=== PATIENT | female | born 1965 | race Caucasian/White ===

== ENCOUNTER 2016-10-08 00:46 | Emergency (ER) | payer MEDICAID, OTHER ==
[~2016-10-08] VITALS: Ht 167.6 cm; Wt 66.0 kg
[~2016-10-08 00:46] MED LIST: LAMI25TA3 PO; PAXI10TA PO; Z.0.NO CURRENT MEDS
[2016-10-08 01:05] VITALS: BP 155/87; PULSE 78; RESP 20; TEMP 98.4
[2016-10-08 01:10] VITALS: BP_SYST 126; BP_SYST 132; BP_DIAS 61; BP_DIAS 75; PULSE 74; RESP 18; O2SAT 98
[2016-10-08] MEDS ORDERED: SODIUM CHLORIDE 0.9% FLUSH 10 ML FLUSH IVF PRN (01:15)
[2016-10-08 01:16] LABS: AUTOMATED NEUTROPHIL # 4.6 TH/MM3 (1.8-7.7); BASOPHIL # 0.1 TH/MM3 (0-0.2); BASOPHIL % 0.6 % (0.0-2.0); EOSINOPHIL # 0.2 TH/MM3 (0-0.4); EOSINOPHIL % 1.6 % (0.0-4.0); HEMATOCRIT 33.7 % (35.0-46.0); LYMPH % 39.5 % (9.0-44.0); LYMPHOCYTE # 3.9 TH/MM3 (1.0-4.8); MEAN CELL VOLUME 66.1 FL (80.0-100.0); MEAN CORPUSCULAR HEMOGLOBIN 20.9 PG (27.0-34.0); MEAN CORPUSCULAR HGB CONC 31.7 % (32.0-36.0); MONO % 9.8 % (0.0-8.0); NEUT % 48.5 % (16.0-70.0); PLATELET COUNT 456 TH/MM3 (150-450); RED CELL DISTRIBUTION WIDTH 21.3 % (11.6-17.2); WHITE BLOOD COUNT 9.8 TH/MM3 (4.0-11.0)
[2016-10-08 01:22] LABS: CHLORIDE 112 MEQ/L (98-107); POTASSIUM 3.4 MEQ/L (3.5-5.1); SODIUM (NA) 145 MEQ/L (136-145)
--- NOTE | 2016-10-08 01:22 | RADHPO ---
EXAM DATE/TIME: 10/08/2016 01:03 [facility] COMPARISON: No previous studies available for comparison. INDICATIONS : Chest pain. MEDICAL HISTORY : Chronic obstructive pulmonary disease. SURGICAL HISTORY : None. ENCOUNTER: Initial ACUITY: 1 day PAIN SCORE: 8/10 LOCATION: Bilateral chest FINDINGS: A single view of the chest demonstrates the lungs to be symmetrically aerated without evidence of mas s, infiltrate or effusion. The cardiomediastinal contours are unremarkable. Osseous structures are intact. CONCLUSION: 1. No acute cardiopulmonary disease. Addi Mercado MD on October 08, 2016 at 1:21 Board Certified Radiologist. This report was verified electronically.
--- NOTE | 2016-10-08 01:22 | PD ---
HPI . Chest pain Chief Complaint: Chest Pain Time Seen by Provider: 01:19 Travel History International Travel<30 days: No Contact w/Intl Traveler<30days: No Traveled to known affect area: No History of Present Illness HPI Patient is brought in obviously intoxicated by her probably equally intoxicated significant other with a chief complaint of chest pain which has been going on for months. Patient also reports numbness in her left arm and left leg. This has also been present for months. Further reliable history is not obtainable at this time. PFSH Past Medical History Asthma: No Blood Disorders: No Bipolar Disorder: Yes Anxiety: Yes Depression: Yes Cancer: No Cardiovascular Problems: No Chemotherapy: No Chest Pain: Yes (VAGUE H/O CP/PRESSURE C SOB OVER PAST YEAR APPROX 8-9 X AND X 2 DAYS AGO) COPD: Yes Diabetes: No Diminished Hearing: No Endocrine: No Gastrointestinal Disorders: No Genitourinary: No Immune Disorder: No Musculoskeletal: No Neurologic: No Psychiatric: Yes (PTSD) Reproductive: No Respiratory: Yes Radiation Therapy: No Seizures: No Sickle Cell Disease: No Sleep Apnea: No ?: Not Menopausal: No : 8 Para: 8 : 1 Tubal Ligation: Yes Past Surgical History Abdominal Surgery: No AICD: No Cardiac Surgery: No Ear Surgery: No Endocrine Surgery: No Eye Surgery: Yes (cataract surgery, 1991) Genitourinary Surgery: No Gynecologic Surgery: Yes (TUBAL LIGATION 1990) Insulin Pump: No Joint Replacement: No Neurologic Surgery: No Oral Surgery: No Pacemaker: No Thoracic Surgery: No Other Surgery: Yes Social History Alcohol Use: Yes (SOCIALLY, TWO BEERS TODAY) Tobacco Use: Yes (1 - 1 1/2 ppd cigarettes) Substance Use: Yes (YES, ALCOHOL) Allergies-Medications (Allergen,Severity, Reaction): Coded Allergies: Aspirin (Verified Allergy, Severe, ITCH, 10/08/16) Ativan (Verified Allergy, Severe, ITCH, 10/08/16) Codeine (Verified Allergy, Severe, ITCH, 10/08/16) Penicillin (Verified Allergy, Severe, ITCH, 10/08/16) Reported Meds & Prescriptions Reported Meds & Active Scripts Active Review of Systems ROS Limitations: Intoxication Cardiovascular: Positive: Chest Pain or Discomfort Neurologic: Positive: Paresthesia Physical Exam Narrative GENERAL: The room smells heavily of alcohol. The patient is giggling. Both the patient and her significant other have slurred speech. SKIN: Warm and dry. HEAD: Atraumatic. Normocephalic. EYES: Pupils equal and round. Extraocular movements are intact. ENT: No nasal bleeding or discharge. Mucous membranes pink and moist. NECK: Trachea midline. Neck is supple. CARDIOVASCULAR: Regular rate and rhythm. Heart sounds are normal. RESPIRATORY: No accessory muscle use. Lungs are clear with good air movement throughout. Patient complains of diffuse chest wall tenderness. GASTROINTESTINAL: Abdomen soft, non-tender, nondistended. MUSCULOSKELETAL: No obvious deformities. No edema. NEUROLOGICAL: Awake and alert. No obvious cranial nerve deficits. Motor grossly within normal limits. Normal speech. PSYCHIATRIC: Intoxicated. Data Data Last Documented VS Vital Signs Date Time Temp Pulse Resp B/P Pulse Ox O2 Delivery O2 Flow Rate FiO2 10/08/16 03:14 Room Air 10/08/16 03:14 69 17 111/69 98 10/08/16 01:05 98.4 Orders Basic Metabolic Panel (Bmp) (10/08/16 01:01) Ckmb (Isoenzyme) Profile (10/08/16 01:01) Complete Blood Count With Diff (10/08/16 01:01) Magnesium (Mg) (10/08/16 01:01) Prothrombin Time / Inr (Pt) (10/08/16 01:01) Act Partial Throm Time (Ptt) (10/08/16 01:01) Troponin I (10/08/16 01:01) Chest, Single Ap (10/08/16 01:01) Ecg Monitoring (10/08/16 01:01) Bilateral Bp Monitoring (10/08/16 01:01) Iv Access Insert/Monitor (10/08/16 01:01) Oximetry (10/08/16 01:01) Oxygen Administration (10/08/16 01:01) Sodium Chloride 0.9% Flush (Ns Flush) (10/08/16 01:15) Drug Screen, Random Urine (10/08/16 01:19) CKMB (10/08/16 01:03) CKMB% (10/08/16 01:03) Alcohol (Ethanol) (10/08/16 01:03) Labs Laboratory Tests Test 10/08/16 10/08/16 01:03 01:39 White Blood Count 9.8 TH/MM3 Red Blood Count 5.10 MIL/MM3 Hemoglobin 10.7 GM/DL Hematocrit 33.7 % Mean Corpuscular Volume 66.1 FL Mean Corpuscular Hemoglobin 20.9 PG Mean Corpuscular Hemoglobin 31.7 % Concent Red Cell Distribution Width 21.3 % Platelet Count 456 TH/MM3 Mean Platelet Volume 7.2 FL Neutrophils (%) (Auto) 48.5 % Lymphocytes (%) (Auto) 39.5 % Monocytes (%) (Auto) 9.8 % Eosinophils (%) (Auto) 1.6 % Basophils (%) (Auto) 0.6 % Neutrophils # (Auto) 4.6 TH/MM3 Lymphocytes # (Auto) 3.9 TH/MM3 Monocytes # (Auto) 1.0 TH/MM3 Eosinophils # (Auto) 0.2 TH/MM3 Basophils # (Auto) 0.1 TH/MM3 CBC Comment AUTO DIFF Differential Comment AUTO DIFF CONFIRMED Platelet Estimate HIGH Platelet Morphology Comment NORMAL Prothrombin Time 10.4 SEC Prothromb Time International 0.9 RATIO Ratio Activated Partial 28.5 SEC Thromboplast Time Sodium Level 145 MEQ/L Potassium Level 3.4 MEQ/L Chloride Level 112 MEQ/L Carbon Dioxide Level 21.3 MEQ/L Anion Gap 12 MEQ/L Blood Urea Nitrogen 10 MG/DL Creatinine 0.69 MG/DL Estimat Glomerular Filtration 89 ML/MIN Rate Random Glucose 76 MG/DL Calcium Level 8.6 MG/DL Magnesium Level 2.5 MG/DL Total Creatine Kinase 152 U/L Creatine Kinase MB 1.9 NG/ML Troponin I LESS THAN 0.02 NG/ML Ethyl Alcohol Level 282 MG/DL Urine Opiates Screen NEG Urine Barbiturates Screen NEG Urine Amphetamines Screen NEG Urine Benzodiazepines Screen NEG Urine Cocaine Screen NEG Urine Cannabinoids Screen NEG [facility] Medical Decision Making Medical Screen Exam Complete: Yes Emergency Medical Condition: Yes Interpretation(s) EKG shows a normal sinus rhythm with no ST segment elevation or depression. Differential Diagnosis Differential diagnosis of chest pain includes but is not limited to musculoskeletal pain, pulmonary embolism, acute coronary syndrome, pneumonia, pleurisy Narrative Course Patient presents for evaluation of chest pain and left arm and leg numbness which have been present for months. CBC & BMP Diagram 10/08/16 01:03 Cardiac enzymes are negative. Tox screen is negative. Alcohol level is 282. She will be allowed to sleep it off. She will then be discharged to follow-up with her primary care provider. Diagnosis Primary Impression: Chest pain Qualified Code: R07.9 - Chest pain, unspecified type Additional Impressions: Paresthesia of left arm and leg Acute alcohol intoxication Qualified Code: F10.120 - Acute alcohol intoxication, uncomplicated Referrals: Primary Care Physician Patient Instructions: Chest Pain (DC), General Instructions Disposition: 01 DISCHARGE HOME Condition: Stable Cristina Thomas MD October 08, 2016 01:22 Condition: Stable Cristina Thomas MD October 08, 2016 01:22
[2016-10-08 01:25] LABS: ANION GAP 12 MEQ/L (5-15); BICARBONATE 21.3 MEQ/L (21.0-32.0); BLOOD UREA NITROGEN 10 MG/DL (7-18); MAGNESIUM 2.5 MG/DL (1.5-2.5)
[2016-10-08 01:28] LABS: APTT (PATIENT) 28.5 SEC (24.3-30.1); INTERNATIONAL NORMALIZED RATIO 0.9 RATIO; PROTHROMBIN TIME - PATIENT 10.4 SEC (9.8-11.6)
[2016-10-08 01:29] LABS: GLOMERULAR FILTRATION RATE 89 ML/MIN (>89)
[2016-10-08 01:32] LABS: CREATINE KINASE 152 U/L (26-192)
[2016-10-08 01:35] LABS: HEMO FLAGS AUTO DIFF
[2016-10-08 01:44] LABS: CKMB 1.9 NG/ML (0.5-3.6)
[2016-10-08 01:46] LABS: PLATELET ESTIMATE SMEAR HIGH (NORMAL); PLATELET MORPHOLOGY NORMAL (NORMAL); SCAN/DIFF AUTO DIFF CONFIRMED
[2016-10-08 01:52] LABS: AMPHETAMINE, URINE NEG (NEG); BARBITURATES, URINE NEG (NEG); COCAINE, URINE NEG (NEG)
[2016-10-08 02:45] VITALS: BP 119/73; PULSE 68; RESP 16; O2SAT 98
[2016-10-08 03:14] VITALS: BP 111/69; PULSE 69; RESP 17; O2SAT 98
[2016-10-08 04:07] VITALS: BP 117/70
--- NOTE | 2016-10-08 10:28 | EKG ---
Date Performed: 10/08/2016 Time Performed: 00:47:26 PTAGE: 51 years EKG: Sinus rhythm . Septal T wave changes are nonspecific Borderline ECG PREVIOUS TRACING : 08/22/2011 19.45 DOCTOR: Sammy Kumar Interpretating Date/Time 10/08/2016 10:26:36
== END 2016-10-08 04:13 | disposition home or self-care (01) ==
LOC: PHED 00:46
DX: R07.9 Chest pain, unspecified (principal); F10.120 Alcohol abuse with intoxication, uncomplicated; R94.31 Abnormal electrocardiogram [ECG] [EKG]; J44.9 Chronic obstructive pulmonary disease, unspecified; F17.210 Nicotine dependence, cigarettes, uncomplicated
CPT/HCPCS: 71010; 80048; 80307; 82550; 82552; 83735; 84484; 85025; 85610; 85730; 93005; 99285

== ENCOUNTER 2016-11-30 00:02 | Emergency (ER) | payer MEDICAID ==
[~2016-11-30] VITALS: Ht 167.6 cm; Wt 65.8 kg
[2016-11-30 00:22] VITALS: BP 128/84; PULSE 96; RESP 18; TEMP 97.7; O2SAT 100
[2016-11-30 01:28] VITALS: BP 144/78; PULSE 86; RESP 18; TEMP 97.9; O2SAT 99
[2016-11-30] MEDS ORDERED: ASPI81CH37 CHEW (01:42)
--- NOTE | 2016-11-30 01:55 | PD ---
HPI Chief Complaint: Respiratory Symptoms Time Seen by Provider: 01:53 Travel History International Travel<30 days: No Contact w/Intl Traveler<30days: No Traveled to known affect area: No History of Present Illness HPI The patient is a 51-year-old female that complains of shortness of breath for 4 days. She states she has been wheezing and vomiting although the vomiting has subsided. She states this all came about one voluntary at an animal alf and has not felt well since. She denies any fever. She is not nauseated at this time. She smokes one pack a day. PFSH Past Medical History Asthma: No Blood Disorders: No Bipolar Disorder: Yes Anxiety: Yes Depression: Yes Cancer: No Cardiovascular Problems: Yes Chemotherapy: No Chest Pain: Yes (VAGUE H/O CP/PRESSURE C SOB OVER PAST YEAR APPROX 8-9 X AND X 2 DAYS AGO) COPD: Yes Diabetes: No Diminished Hearing: No Endocrine: No Gastrointestinal Disorders: No Genitourinary: No Immune Disorder: No Musculoskeletal: No Neurologic: No Psychiatric: Yes (PTSD) Reproductive: No Respiratory: Yes Radiation Therapy: No Seizures: No Sickle Cell Disease: No Sleep Apnea: No Tetanus Vaccination: > 5 Years Influenza Vaccination: No ?: Unknown Menopausal: Yes : 9 Para: 9 : 1 Tubal Ligation: Yes Past Surgical History Abdominal Surgery: No AICD: No Cardiac Surgery: No Ear Surgery: No Endocrine Surgery: No Eye Surgery: Yes (cataract surgery, 1991) Genitourinary Surgery: No Gynecologic Surgery: Yes (TUBAL LIGATION 1990) Insulin Pump: No Joint Replacement: No Neurologic Surgery: No Oral Surgery: No Pacemaker: No Thoracic Surgery: No Other Surgery: Yes Social History Alcohol Use: Yes (SOCIALLY) Tobacco Use: Yes (1/2 ppd cigarettes) Substance Use: No Allergies-Medications (Allergen,Severity, Reaction): Coded Allergies: Aspirin (Verified Allergy, Severe, ITCH, 11/30/16) Ativan (Verified Allergy, Severe, ITCH, 11/30/16) Codeine (Verified Allergy, Severe, ITCH, 11/30/16) Penicillin (Verified Allergy, Severe, ITCH, 11/30/16) Reported Meds & Prescriptions Reported Meds & Active Scripts Active Reported Aspirin Low Dose (Aspirin) 81 Mg Chew 81 Mg CHEW DAILY Review of Systems Except as stated in HPI: all other systems reviewed are Neg Physical Exam Narrative GENERAL: The patient is alert, oriented 3 in no respiratory distress. Her vital signs show heart rate of 96 but otherwise normal. SKIN: Focused skin assessment warm/dry. HEAD: Atraumatic. Normocephalic. EYES: Pupils equal and round. No scleral icterus. No injection or drainage. ENT: No nasal bleeding or discharge. Mucous membranes pink and moist. NECK: Trachea midline. No JVD. CARDIOVASCULAR: Regular rate and rhythm. No murmur appreciated. RESPIRATORY: No accessory muscle use. Clear to auscultation. Breath sounds equal bilaterally. Specifically, no wheezes are heard. GASTROINTESTINAL: Abdomen soft, non-tender, nondistended. Hepatic and splenic margins not palpable. No guarding or rebound is present. MUSCULOSKELETAL: No obvious deformities. No clubbing. No cyanosis. No edema. NEUROLOGICAL: Awake and alert. No obvious cranial nerve deficits. Motor grossly within normal limits. Normal speech. PSYCHIATRIC: Appropriate mood and affect; insight and judgment normal. Data Data Last Documented VS Vital Signs Date Time Temp Pulse Resp B/P Pulse Ox O2 Delivery O2 Flow Rate FiO2 11/30/16 01:35 18 99 Room Air 11/30/16 01:28 97.9 86 144/78 Orders Complete Blood Count With Diff (11/30/16 01:55) Comprehensive Metabolic Panel (11/30/16 01:55) Urinalysis - C+S If Indicated (11/30/16 01:55) Chest, Pa & Lat (11/30/16 01:55) Labs Laboratory Tests Test 11/30/16 11/30/16 02:00 02:25 Urine Color STRAW Urine Turbidity CLEAR Urine pH 5.5 Urine Specific [place] 1.004 Urine Protein NEG mg/dL Urine Glucose (UA) NEG mg/dL Urine Ketones NEG mg/dL Urine Occult Blood NEG Urine Nitrite NEG Urine Bilirubin NEG Urine Leukocyte Esterase NEG Urine Squamous Epithelial 0-5 /hpf Cells Microscopic Urinalysis Comment CULT NOT INDICATED White Blood Count 10.5 TH/MM3 Red Blood Count 5.19 MIL/MM3 Hemoglobin 11.1 GM/DL Hematocrit 35.1 % Mean Corpuscular Volume 67.6 FL Mean Corpuscular Hemoglobin 21.4 PG Mean Corpuscular Hemoglobin 31.7 % Concent Red Cell Distribution Width 20.6 % Platelet Count 457 TH/MM3 Mean Platelet Volume 7.7 FL Neutrophils (%) (Auto) 63.8 % Lymphocytes (%) (Auto) 28.5 % Monocytes (%) (Auto) 5.5 % Eosinophils (%) (Auto) 1.4 % Basophils (%) (Auto) 0.8 % Neutrophils # (Auto) 6.7 TH/MM3 Lymphocytes # (Auto) 3.0 TH/MM3 Monocytes # (Auto) 0.6 TH/MM3 Eosinophils # (Auto) 0.1 TH/MM3 Basophils # (Auto) 0.1 TH/MM3 CBC Comment AUTO DIFF Differential Comment AUTO DIFF CONFIRMED Ovalocytes 1+ Sodium Level 146 MEQ/L Potassium Level 3.6 MEQ/L Chloride Level 113 MEQ/L Carbon Dioxide Level 21.1 MEQ/L Anion Gap 12 MEQ/L Blood Urea Nitrogen 9 MG/DL Creatinine 0.76 MG/DL Estimat Glomerular Filtration 80 ML/MIN Rate Random Glucose 79 MG/DL Calcium Level 9.0 MG/DL Total Bilirubin 0.2 MG/DL Aspartate Amino Transf 14 U/L (AST/SGOT) Alanine Aminotransferase 19 U/L (ALT/SGPT) Alkaline Phosphatase 57 U/L Total Protein 7.4 GM/DL Albumin 3.5 GM/DL [facility] Medical Decision Making Medical Screen Exam Complete: Yes Emergency Medical Condition: Yes Medical Record Reviewed: Yes Interpretation(s) The chest x-ray shows no acute disease. The CBC is normal except for hemoglobin of 11.1. The complete metabolic profile shows a sodium of 146, GFR of 80 but is otherwise normal. The urinalysis is normal and culture is not indicated. Differential Diagnosis Viral syndrome, bronchitis, pneumonia Narrative Course The patient appears to have a viral syndrome. The chest x-ray is normal and the white count is not elevated. The suggest a virus. The patient will be given Phenergan both for the nausea and the cough. She is to follow-up with her primary care physician next week and discontinue smoking. Additional Instructions: As we discussed, discontinue smoking and follow-up with her primary care physician next week. Phenergan is for nausea but it also helps the cough. It is one tablet every 6 hours as needed. Med/Other Pt SpecificInfo: Prescription(s) given Scripts Promethazine (Phenergan)25 Mg [id number] Mg PO Q6H PRN (NAUSEA OR VOMITING) #30 TAB Ref 0 Prov:Xavier Alcaraz MD 11/30/16 Disposition: 01 DISCHARGE HOME Condition: Stable Xavier Alcaraz MD Nov 30, 2016 01:55
[2016-11-30 02:19] LABS: BLOOD, URINE NEG (NEG); GLUCOSE,URINE NEG (NEG); KETONE, URINE NEG (NEG); NITRITE,URINE NEG (NEG); PH, URINE 5.5 (5.0-8.5)
[2016-11-30 02:26] LABS: COMMENT (UR) CULT NOT INDICATED; CULTURE IF INDICATED CULT NOT INDICATED; SQUAMOUS EPITHELIAL CELL URINE 0-5 /hpf (0-5); URINE COLOR STRAW (YELLW/STRAW)
[2016-11-30 02:30] VITALS: BP 127/72; PULSE 78; RESP 18; O2SAT 99
[2016-11-30 02:46] LABS: AUTOMATED NEUTROPHIL # 6.7 TH/MM3 (1.8-7.7); BASOPHIL # 0.1 TH/MM3 (0-0.2); BASOPHIL % 0.8 % (0.0-2.0); EOSINOPHIL # 0.1 TH/MM3 (0-0.4); EOSINOPHIL % 1.4 % (0.0-4.0); HEMATOCRIT 35.1 % (35.0-46.0); LYMPH % 28.5 % (9.0-44.0); MEAN CELL VOLUME 67.6 FL (80.0-100.0); MEAN CORPUSCULAR HEMOGLOBIN 21.4 PG (27.0-34.0); MEAN CORPUSCULAR HGB CONC 31.7 % (32.0-36.0); MONO % 5.5 % (0.0-8.0); NEUT % 63.8 % (16.0-70.0); PLATELET COUNT 457 TH/MM3 (150-450); RED BLOOD COUNT 5.19 MIL/MM3 (4.00-5.30); RED CELL DISTRIBUTION WIDTH 20.6 % (11.6-17.2); WHITE BLOOD COUNT 10.5 TH/MM3 (4.0-11.0)
[2016-11-30 02:54] LABS: HEMO FLAGS AUTO DIFF
[2016-11-30 03:01] LABS: CHLORIDE 113 MEQ/L (98-107); POTASSIUM 3.6 MEQ/L (3.5-5.1); SODIUM (NA) 146 MEQ/L (136-145)
[2016-11-30 03:05] LABS: ANION GAP 12 MEQ/L (5-15); BICARBONATE 21.1 MEQ/L (21.0-32.0); BLOOD UREA NITROGEN 9 MG/DL (7-18)
[2016-11-30 03:08] LABS: ALT (GPT) 19 U/L (10-53); AST (GOT) 14 U/L (15-37); GLOMERULAR FILTRATION RATE 80 ML/MIN (>89)
[2016-11-30 03:09] LABS: TOTAL BILIRUBIN ADULT 0.2 MG/DL (0.2-1.0)
[2016-11-30 03:11] LABS: ALKALINE PHOSPHATASE 57 U/L (45-117)
[2016-11-30 03:20] LABS: OVALOCYTES 1+ (NORMAL); SCAN/DIFF AUTO DIFF CONFIRMED
--- NOTE | 2016-11-30 03:22 | RADRPT ---
EXAM DATE/TIME: 11/30/2016 02:50 [facility] COMPARISON: No previous studies available for comparison. INDICATIONS : Shortness of breath for 4 days. MEDICAL HISTORY : Chronic obstructive pulmonary disease. SURGICAL HISTORY : None. ENCOUNTER: Initial ACUITY: 4 - 6 days PAIN SCORE: 0/10 LOCATION: Bilateral chest FINDINGS: PA and lateral views of the chest demonstrate the lungs to be symmetrically aerated without evidence of mass, infiltrate or effusion. The cardiomediastinal contours are unremarkable. Osseous structure s are intact. CONCLUSION: No acute disease. Praneeth Phillips MD on November 30, 2016 at 3:21 Board Certified Radiologist. This report was verified electronically.
[2016-11-30] MEDS ORDERED: PROM25TA10 PO (03:44)
[2016-11-30 04:00] VITALS: BP 111/79; TEMP 98.2
== END 2016-11-30 04:03 | disposition home or self-care (01) ==
LOC: PHED 00:02
DX: R06.02 Shortness of breath (principal); R06.2 Wheezing; R11.0 Nausea; F17.210 Nicotine dependence, cigarettes, uncomplicated; J44.9 Chronic obstructive pulmonary disease, unspecified
CPT/HCPCS: 71020; 80053; 81001; 85025; 99284